=== PATIENT | male | born 1980 | race Caucasian/White ===

== ENCOUNTER 2019-02-07 13:33 | Emergency (ER) | payer SELFPAY ==
[2019-02-07 13:43] VITALS: BP 114/70; PULSE 92; TEMP 98.7; BMI 20.7
[2019-02-07] MEDS ORDERED: DIPHTH,PERTUSS(ACELL),TET 0.5 ML DISP.SYRIN IM ONE ×3 (14:15→14:31)
--- NOTE | 2019-02-07 14:15 | PDOC ---
History of Present Illness - General Chief Complaint: Injury Stated Complaint: BUSTED LIP Time Seen by Provider: 02/07/19 13:47 History Source: Patient Exam Limitations: No Limitations Past History - Travel Traveled outside of the country in the last 30 days: No Close contact w/someone who was outside of country & ill: No - Past Medical History Allergies/Adverse Reactions: Allergies Allergy/AdvReac Type Severity Reaction Status Date / Time No Known Allergies Allergy Verified 02/07/19 13:41 Home Medications: Ambulatory Orders Amox-Tr/K Cl [Augmentin - 875Mg Tablet] 1 tab PO BID #14 tablet 02/07/19 COPD: No - Suicide/Smoking/Psychosocial Hx Smoking History: Never smoked Have you smoked in the past 12 months: No Information on smoking cessation initiated: No Hx Alcohol Use: No Drug/Substance Use Hx: No Review of Systems - Review of Systems Able to Perform ROS?: Yes Comments:: 02/07/19 14:09 CONSTITUTIONAL: Absent: fever, chills, diaphoresis, generalized weakness, malaise, loss of appetite HEENT: Present: lip laceration Absent: rhinorrhea, nasal congestion, throat pain, throat swelling, difficulty swallowing, mouth swelling, ear pain, eye pain, visual Changes MUSCULOSKELETAL: Absent: myalgia, arthralgia, joint swelling SKIN: Absent: rash, itching, pallor NEUROLOGIC: Absent: headache, focal weakness or paresthesias, dizziness, unsteady gait, seizure, mental status changes, bladder or bowel incontinence PSYCHIATRIC: Absent: anxiety, depression, suicidal or homicidal ideation, hallucinations. Is the patient limited Colombian proficient: No *Physical Exam - Vital Signs Last Vital Signs Temp Pulse Resp BP Pulse Ox 98.7 F 92 H 18 114/70 99 02/07/19 13:41 02/07/19 13:41 02/07/19 13:41 02/07/19 13:41 02/07/19 13:41 - Physical Exam Comments: 02/07/19 14:10 GENERAL: The patient is awake, alert, and fully oriented, in no acute distress. HEAD: Normal with no signs of trauma. EYES: Pupils equal, round and reactive to light, extraocular movements intact, sclera anicteric, conjunctiva clear. No TTP of the L zygomatic arch HEENT: No nasal congestion or rhinorrhea. No sinus Tenderness. Mucous membranes are moist. No tonsillar erythema, exudate or edema. Uvula is midline. No TM bulging, dullness or erythema. Swelling noted to the L cheek. 1cm laceration to the inside of the L lip at the angle going to the aracelis border. NECK: Neck is supple. No adenopathy. No meningismus. No stridor. EXTREMITIES: Normal range of motion, no edema. NEUROLOGICAL: Normal speech, normal gait. PSYCH: Normal mood, normal affect. SKIN: Warm, Dry, normal turgor, no rashes or lesions noted. Procedures - Laceration/Wound Repair Left Upper Lip Wound Length: to 2.5 cm Wound Explored: no foreign body present Wound's Depth, Shape: superficial Irrigated w/ Saline: Yes Anesthesia: 1% Lidocaine Amount of Anesthetic (ccs): 2 Wound Debrided: minimal Wound Repaired With: Sutures Deep Layer Suture Size/Type: 5:0, gut Number of Deep Layer Sutures: 2 Medical Decision Making - Medical Decision Making 02/07/19 14:11 the patient is a 38-year-old male who presents to the ER for a lip laceration to the left corner of his mouth. He states he was working on the house last night at approximately 11 PM when at school came back and hit him in the left cheek. That he noticed a flap on his lip but thought it would heal on its own. He presents to the ER today because he still has aflap/large gap to the left corner of his lip. He does not remember his last tetanus shot. Denies fevers, chills, facial pain, numbness and tingling to the affected area. A/P: Lip laceration On exam patient with a 1 cm laceration to the corner of the left lip into the buccal mucosa, going to the vermilion border. Lacerations been open for more than 8 hours, however since there is a large gap we will attempt to put [address] to help with healing Tetanus shot was updated. Patient instructed to return for wound care tomorrow. Discharge home I discussed the physical exam findings, ancillary test results and final diagnoses with the patient. I answered all of the patient's questions. The patient was satisfied with the care received and felt comfortable with the discharge plan and treatment plan. The Patient agrees to follow up with the primary care physician/specialist within 24-72 hours. Return precautions were given. *DC/Admit/Observation/Transfer Diagnosis at time of Disposition: Lip laceration Qualifiers: Encounter type: initial encounter Qualified Code(s): S01.511A - Laceration without foreign body of lip, initial encounter - Discharge Dispostion Disposition: HOME Condition at time of disposition: Stable Decision to Admit order: No - Referrals - Patient Instructions Printed Discharge Instructions: DI for Laceration Repair -- Complex Suture Additional Instructions: You had your cut fixed today with stitches. They will dissolve on their own Your tetanus shot was updated today. Please return tomorrow for a wound check Take the antibiotics as directed. Eat soft foods, that are not too hot or too cold Avoid opening your mouth widely Rinse with listerine after eating. Return to the emergency department sooner if you have area of redness around the site, purulent drainage, fevers, or have any changes in your symptoms. - Post Discharge Activity
[2019-02-07] MEDS ORDERED: LIDOCAINE VISCOUS 2% ORAL/TOP 20 ML UNIT-DOSE CUP MM ONE (14:16)
[2019-02-07] MEDS ORDERED: LIDOCAINE VISCOUS 2% ORAL/TOP 20 ML UNIT-DOSE CUP ONE (14:18)
== END 2019-02-07 15:15 | disposition home or self-care (01) ==
LOC: JERFT 13:33
PROC: 0CQ03ZZ Repair Upper Lip, Percutaneous Approach (ICD-10-PCS; principal; 2019-02-07)
PROC: 3E0234Z Introduction of Serum, Toxoid and Vaccine into Muscle, Percutaneous Approach (ICD-10-PCS; 2019-02-07)
DX: S01.511A Laceration without foreign body of lip, initial encounter (principal); W22.8XXA Striking against or struck by other objects, initial encounter; Y93.89 Activity, other specified; Y92.018 Other place in single-family (private) house as the place of occurrence of the external cause; Y99.8 Other external cause status
CPT/HCPCS: 90715; 99281-25